=== PATIENT | female | born 1985 | race Caucasian/White ===

== ENCOUNTER → 2019-06-23 11:01 | Outpatient (CLI) | payer BC, SELFPAY ==
[2019-06-23 12:50] LABS: Hemoglobin A1C% w Est Avg Glu 5.1 % (4.0-6.0)
[2019-06-23 13:25] LABS: Prolactin 9.6 ng/mL (3.0-18.6)
[2019-06-23 14:54] LABS: Thyroid Stimulating Hormone 0.95 uIU/mL (0.47-4.68)
[2019-06-23 15:31] LABS: Follicle Stimulating Hormone 4.93 mIU/mL; Luteinizing Hormone 5.33 mIU/mL
[2019-06-28 00:53] LABS: Testosterone Total 24 ng/dL (2-45)
== END ==
DX: E28.1 Androgen excess (principal)
CPT/HCPCS: 36415; 83001; 83002; 83036; 84146; 84402; 84403; 84443

== ENCOUNTER 2020-03-14 17:58 | Emergency (ER) | payer BC, SELFPAY ==
[2020-03-14 18:04] VITALS: BP 188/86; PULSE 61; RESP 15; TEMP 36.4; O2SAT 100; BMI 33.3
[2020-03-14 18:40] LABS: Bacteria Urine Few (2-10); Culture Indicated Urine Specimen Cultured; RBC Urine 0-1/HPF (0-5/HPF); Squamous Epithelial Cell Urine 1-5 /HPF (0-5/HPF); Transitional Epi Cells Urine 1-5/HPF (0-5/HPF); WBC Urine 5-10/HPF (0-5/HPF)
[2020-03-14 19:31] LABS: Add Manual Diff / Slide Review NO; Basophils Absolute Auto 100 /uL (0-100); Basophils Percent Auto 0.7 % (0-2); Eosinophils Absolute Auto 200 /uL (0-450); Eosinophils Percent Auto 1.6 % (2-4); Hematocrit 41.4 % (36-46); Lymphocytes Absolute Auto 2900 /uL (1100-4500); Lymphocytes Percent Auto 24.1 % (25-40); Mean Corpuscular HGB Conc 33.7 % (30-36); Mean Corpuscular Hemoglobin 29.4 PG (26-34); Mean Corpuscular Volume 87.1 fL (80-100); Monocytes Absolute Auto 800 /uL (0-900); Monocytes Percent Auto 6.9 % (3-14); Neutrophils Absolute Auto 8100 /uL (1500-7000); Neutrophils Percent Auto 66.7 % (50-75); Platelet Count 250 X10^3/uL (150-400); Red Blood Cell Count 4.75 X10^6/uL (4.0-5.2); White Blood Cell Count 12.1 X10^3/uL (4.5-11.0)
[2020-03-14 19:43] LABS: Lactate (Lactic Acid) 0.7 mmol/L (0.7-2.1)
[2020-03-14 19:44] LABS: BUN Creatinine Ratio 21.1 (6-22); Blood Urea Nitrogen 15 mg/dL (7-17); Calcium 9.1 mg/dL (8.4-10.2); Carbon Dioxide 28 mmol/L (22-32); Chloride 102 mmol/L (98-107); Estimated Glomerular Filt Rate > 60.0 mL/min (>60); Glucose 95 mg/dL (70-100); HEMOLYSIS < 15 (0-50); Potassium 4.1 mmol/L (3.4-5.1); Sodium 137 mmol/L (137-145)
[2020-03-14] MEDS: cephALEXin 250 MG PREPACK 1 BOTTLE MISC (20:04)
[2020-03-14] MEDS: IBUPROFEN 400 MG TABLET PO (20:04)
[2020-03-14 20:29] VITALS: BP 174/76; PULSE 78; RESP 16; O2SAT 97
--- NOTE | 2020-03-14 23:00 | ED_ITS ---
HPI - Female Genitourinary <DANIELLE Mayo - Last Filed: 03/14/20 23:24> General Chief complaint: Urogenital-Female Stated complaint: states kidneys are hurting Time Seen by Provider: 03/14/20 19:01 Source: patient Mode of arrival: Ambulatory Limitations: no limitations History of Present Illness HPI Narrative: This is a 34-year-old female, nonsmoker, who has noncontributing medical history presents to ED with chief complain of bilateral low back pain worse in left-sided since 11:00 p.m. last night which woke her up. Patient reports chills and nausea. Patient reports had urinary frequency but no dysuria and feeling bloated and thought she might be . Patient denies fever, vomiting, abdominal pain, hematuria, or history of kidney stones. LMP on 02/20/20 and recently had IUD removed in hopes of . Patient reports she usually gets UTI once a year but usual symptoms are urinary hesitancy and dysuria. Patient denies unusual vaginal discharges or perineum rashes/lesions. Reports pain improves when she puts pressure on the back. Patient reports she noticed her blood pressure has been fluctuating from normal to high but no symptoms such as chest pain, dyspnea, dizziness, or headache. Patient also reports left side ear ringing. She had an appointment made with ENT specialist but this got canceled during . She denies ear pain, each ear, or decreased hearing. Related Data Home Medications Medication Instructions Recorded Confirmed dapsone 7.5 % topical gel with pump 1 applictn TOP DAILY 02/22/20 02/22/20 metronidazole 0.75 % topical cream 1 applictn TOP DAILY 02/22/20 02/22/20 spironolactone 50 mg tablet 50 mg PO BID 02/22/20 02/22/20 Previous Rx's Medication Instructions Recorded cephalexin [Keflex] 500 mg PO Q6H 7 Days #28 cap 03/14/20 Allergies Allergy/AdvReac Type Severity Reaction Status Date / Time No Known Drug Allergies Allergy Verified 03/14/20 18:04 Review of Systems <DANIELLE Mayo - Last Filed: 03/14/20 23:24> Review of Systems Narrative: General: Denies fever, (+) chills, fatigue, malaise, sweats. HEENT: Denies sinus pain, ear pain, sore throat, difficulty swallowing, dizziness. Respiratory: Denies dyspnea, cough, wheezing, hemoptysis, sputum. Cardiovascular: Denies chest pain, palpitations, orthopnea, edema. Gastrointestinal: Denies (+) nausea, vomiting, abdominal pain, diarrhea, constipation, melena. : See HPI Musculoskeletal: See HPI Skin: Denies rash, skin lesions, or other. Neurologic: Denies weakness, headache, numbness, change in speech, confusion, seizures, incoordination. Psychiatric: No concerning psychosocial issues. 12-point review of systems is negative except for those stated above. Patient History <DANIELLE Mayo - Last Filed: 03/14/20 23:24> Medical History (Updated 03/14/20 @ 20:12 by DANIELLE Mayo) Acne (Chronic ~1997) Chicken pox (Resolved 1987) Chronic headaches (Chronic) Depression (Chronic 2015) Hearing loss (Chronic 1987) History of recurrent ear infection (Resolved 1985) Infertility (Chronic) Irregular periods/menstrual cycles (Chronic 2014) Migraines (Chronic 1996) Surgical History (Updated 04/28/18 @ 11:13 by Karen Cobb) Anesthesia (Resolved) History of third molar tooth extraction (Resolved) Status post myringotomy with insertion of tube (Resolved 1993) Family History (Updated 04/28/18 @ 11:21 by Karen Cobb) Father Rupture, aorta Heart failure Heart disease Hyperlipidemia Mother Breast cancer Grandfather Cancer Lung cancer Grandmother Breast cancer Grandfather Kidney failure Cancer Hypertension Heart disease Pacemaker Grandmother Colon cancer Cancer Diabetes mellitus Heart disease Pacemaker Family/Other No problems noted. Smoking Status: Never smoker alcohol intake frequency: holidays/special occasions only Substance Use Type: does not use Exam <DANIELLE Mayo - Last Filed: 03/14/20 23:24> Narrative Exam Narrative: General appearance: well developed, well nourished, in no acute distress. Head: normocephalic, atraumatic, no scalp lesions, non-tender. ENT: Bilateral auditory canals clear. Left tympanic membranes dull and appearing sclerosis without erythema. Right tympanic membrane clear. Hearing grossly intact. Airway patent. Neck/Thyroid: neck supple, full range of motion, no visible masses or meningeal signs. No JVD, non-tender without lymphadenopathy. Skin: no suspicious rashes, lesions over visible areas. Warm and dry and appropriate color for ethnicity. Heart: no clubbing, no cyanosis, no edema. S1 and S2 normal. RRR w/o murmurs, clicks, or bruits. Lungs: Breathing even and unlabored. No stridor. No accessory muscles used. Able to speak in full sentences. Chest: normal shape and expansion. Abdomen: non-obese, non-distended. Neurologic: alert and oriented. 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 Psych: good eye contact, normal affect. Initial Vital Signs Initial Vital Signs: Vital Signs Temperature 97.5 F L 03/14/20 18:04 Pulse Rate 61 03/14/20 18:04 Respiratory Rate 15 03/14/20 18:04 Blood Pressure 188/86 H 03/14/20 18:04 Pulse Oximetry 100 03/14/20 18:04 Back/Spine/Pelvis Back: normal to inspection, No back tenderness, No CVA tenderness, No erythema, No mass and No warmth <Chris Phillips MD - Last Filed: 03/15/20 00:26> Initial Vital Signs Initial Vital Signs: Vital Signs Temperature 97.5 F L 03/14/20 18:04 Pulse Rate 61 03/14/20 18:04 Respiratory Rate 15 03/14/20 18:04 Blood Pressure 188/86 H 03/14/20 18:04 Pulse Oximetry 100 03/14/20 18:04 Scores <DANIELLE Mayo - Last Filed: 03/14/20 23:24> GCS [place] coma scale eye opening: Spontaneous Chitra coma scale verbal response: Orientated Chitra coma scale motor response: Obey commands Chitra coma scale total score: 15 qSOFA Altered Mental Status (GCS <15): No Respiratory rate greater than/equal to 22: No Systolic blood pressure less than or equal to 100: No qSOFA Total: 0 0-1 Not High Risk 1-3 High risk Course <DANIELLE Mayo - Last Filed: 03/14/20 23:24> Orders Ordered: ED Orders 03/14/20 18:07 Urine Culture Stat Urine Microscopic Stat 03/14/20 19:21 Basic Metabolic Panel Stat Complete Blood Count AUTO DIFF Stat Lactate (Lactic Acid) Stat Discontinued Medications Cefazolin Sodium (Keflex 250 Mg Prepack) 1 bottle MISC SEEINSTR ONE Stop: 03/14/20 19:51 Last Admin: 03/14/20 20:04 Dose: 1 bottle Documented by: JESSE Ibuprofen (Advil) 400 mg PO NOW ONE Stop: 03/14/20 19:56 Last Admin: 03/14/20 20:04 Dose: 400 mg Documented by: JESSE Vital Signs Vital signs: Vital Signs - 8 hr 03/14/20 18:04 03/14/20 20:29 Temperature 97.5 F L Pulse Rate 61 78 Respiratory Rate 15 16 Blood Pressure 188/86 H 174/76 H Pulse Oximetry 100 97 <Chris Phillips MD - Last Filed: 03/15/20 00:26> Orders Ordered: ED Orders 03/14/20 18:07 Urine Culture Stat Urine Microscopic Stat 03/14/20 19:21 Basic Metabolic Panel Stat Complete Blood Count AUTO DIFF Stat Lactate (Lactic Acid) Stat Discontinued Medications Cefazolin Sodium (Keflex 250 Mg Prepack) 1 bottle MISC SEEINSTR ONE Stop: 03/14/20 19:51 Last Admin: 03/14/20 20:04 Dose: 1 bottle Documented by: JESSE Ibuprofen (Advil) 400 mg PO NOW ONE Stop: 03/14/20 19:56 Last Admin: 03/14/20 20:04 Dose: 400 mg Documented by: JESSE Vital Signs Vital signs: Vital Signs - 8 hr 03/14/20 18:04 03/14/20 20:29 Temperature 97.5 F L Pulse Rate 61 78 Respiratory Rate 15 16 Blood Pressure 188/86 H 174/76 H Pulse Oximetry 100 97 MDM - Female Genitourinary <DANIELLE Mayo - Last Filed: 03/14/20 23:24> Differential Diagnosis Differential diagnosis: Likely urinary tract infection, cystitis and other (Pyelonephritis, renal stones) Medical Records Attestation: I reviewed the patient's medical records. Lab Data Attestation: I reviewed the patient's lab results. Result diagrams: 03/14/20 19:21 03/14/20 19:21 Labs: Lab Results 03/14/20 03/14/20 03/14/20 Range/Units 18:07 19:21 19:21 WBC 12.1 H (4.5-11.0) X10^3/uL RBC 4.75 (4.0-5.2) X10^6/uL Hgb 14.0 (12.0-16.0) g/dL Hct 41.4 (36-46) % MCV 87.1 (80-100) fL MCH 29.4 (26-34) PG MCHC 33.7 (30-36) % RDW 13.0 (11.6-14.8) % Plt Count 250 (150-400) X10^3/uL Neut % (Auto) 66.7 (50-75) % Lymph % (Auto) 24.1 L (25-40) % Iron % (Auto) 6.9 (3-14) % Eos % (Auto) 1.6 L (2-4) % Baso % (Auto) 0.7 (0-2) % Neut # (Auto) 8100 H (5074-9014) /uL Lymph # (Auto) 2900 (2781-5923) /uL Iron # (Auto) 800 (0-900) /uL Eos # (Auto) 200 (0-450) /uL Baso # (Auto) 100 (0-100) /uL Sodium 137 (137-145) mmol/L Potassium 4.1 (3.4-5.1) mmol/L Chloride 102 (98-107) mmol/L Carbon Dioxide 28 (22-32) mmol/L BUN 15 (7-17) mg/dL Creatinine 0.71 (0.52-1.04) mg/dL Estimated GFR > 60.0 (>60) mL/min BUN/Creatinine Ratio 21.1 (6-22) Glucose 95 (70-100) mg/dL Lactate (0.7-2.1) mmol/L Calcium 9.1 (8.4-10.2) mg/dL Urine RBC 0-1/hpf (0-5/HPF) Urine WBC 5-10/hpf H (0-5/HPF) Ur Squamous Epith Cells 1-5 /hpf (0-5/HPF) Ur Transition Epith Cell 1-5/hpf (0-5/HPF) Urine Bacteria Few (2-10) H (None) Ur Culture Indicated? Specimen cultured 03/14/20 Range/Units 19:21 WBC (4.5-11.0) X10^3/uL RBC (4.0-5.2) X10^6/uL Hgb (12.0-16.0) g/dL Hct (36-46) % MCV (80-100) fL MCH (26-34) PG MCHC (30-36) % RDW (11.6-14.8) % Plt Count (150-400) X10^3/uL Neut % (Auto) (50-75) % Lymph % (Auto) (25-40) % Iron % (Auto) (3-14) % Eos % (Auto) (2-4) % Baso % (Auto) (0-2) % Neut # (Auto) (5989-0062) /uL Lymph # (Auto) (6127-3274) /uL Iron # (Auto) (0-900) /uL Eos # (Auto) (0-450) /uL Baso # (Auto) (0-100) /uL Sodium (137-145) mmol/L Potassium (3.4-5.1) mmol/L Chloride (98-107) mmol/L Carbon Dioxide (22-32) mmol/L BUN (7-17) mg/dL Creatinine (0.52-1.04) mg/dL Estimated GFR (>60) mL/min BUN/Creatinine Ratio (6-22) Glucose (70-100) mg/dL Lactate 0.7 (0.7-2.1) mmol/L Calcium (8.4-10.2) mg/dL Urine RBC (0-5/HPF) Urine WBC (0-5/HPF) Ur Squamous Epith Cells (0-5/HPF) Ur Transition Epith Cell (0-5/HPF) Urine Bacteria (None) Ur Culture Indicated? Point of Care Testing Test Results Negative Urine Dip Bedside Urine Glucose Negative Bedside Urine Bilirubin - Negative Bedside Urine Ketone - Negative Urine Specific [place] 1.030 Bedside Urine Occult Blood - Negative Bedside Urine pH 3.0 Bedside Urine Protein - Negative Bedside Urine Urobilinogen - Negative Bedside Urine Nitrite - Negative Bedside Urine Leukocytes ++ 125 Esterase MDM Narrative Medical decision making narrative: This is a 34-year-old female who had urinary frequency and abdominal bloatedness 2 days before experiencing bilateral low back pain worse on left side since last night 11:00 pm. Patient had associated symptoms as nausea and chills. Patient reports atypical for her UTI symptoms from the past. Patient is nontoxic appearing and afebrile. POC urine test shows +++ leuks with negative nitrites. Urine test was negative. Microscopic urine test shows 5-10/hpf of WBC and few urine bacteria. Urine culture is pending. 0-1/hpf of RBC seen. Considered renal stone but patient's presentation and physical exam is not consistent with this. Considered pyelonephritis and labs were drawn. Very mild leukocytosis of 12.1 with normal kidney function test. Unremarkable other BMP. Lactate was normal. Patient was treated with 1st dose of Keflex and Motrin in ED and discharged to home with prepack and eRX for QID for 7 day course for UTI/early pyelonephritis. Patient advised to use aobn-hbf-ktioieu Tylenol and or Motrin for discomfort. Return precautions were discussed with patient and she verbalized understanding and agreement with the treatment plan. Patient provided with [facility] phone number to arrange PCP. Patient advised to use nasal steroid inhaler or oral allergy medication for her right ear ringing and to follow-up with ENT specialist as she planned. <Chris Phillips MD - Last Filed: 03/15/20 00:26> Lab Data Labs: Lab Results 03/14/20 03/14/20 03/14/20 Range/Units 18:07 19:21 19:21 WBC 12.1 H (4.5-11.0) X10^3/uL RBC 4.75 (4.0-5.2) X10^6/uL Hgb 14.0 (12.0-16.0) g/dL Hct 41.4 (36-46) % MCV 87.1 (80-100) fL MCH 29.4 (26-34) PG MCHC 33.7 (30-36) % RDW 13.0 (11.6-14.8) % Plt Count 250 (150-400) X10^3/uL Neut % (Auto) 66.7 (50-75) % Lymph % (Auto) 24.1 L (25-40) % Iron % (Auto) 6.9 (3-14) % Eos % (Auto) 1.6 L (2-4) % Baso % (Auto) 0.7 (0-2) % Neut # (Auto) 8100 H (9846-2499) /uL Lymph # (Auto) 2900 (1950-5634) /uL Iron # (Auto) 800 (0-900) /uL Eos # (Auto) 200 (0-450) /uL Baso # (Auto) 100 (0-100) /uL Sodium 137 (137-145) mmol/L Potassium 4.1 (3.4-5.1) mmol/L Chloride 102 (98-107) mmol/L Carbon Dioxide 28 (22-32) mmol/L BUN 15 (7-17) mg/dL Creatinine 0.71 (0.52-1.04) mg/dL Estimated GFR > 60.0 (>60) mL/min BUN/Creatinine Ratio 21.1 (6-22) Glucose 95 (70-100) mg/dL Lactate (0.7-2.1) mmol/L Calcium 9.1 (8.4-10.2) mg/dL Urine RBC 0-1/hpf (0-5/HPF) Urine WBC 5-10/hpf H (0-5/HPF) Ur Squamous Epith Cells 1-5 /hpf (0-5/HPF) Ur Transition Epith Cell 1-5/hpf (0-5/HPF) Urine Bacteria Few (2-10) H (None) Ur Culture Indicated? Specimen cultured 03/14/20 Range/Units 19:21 WBC (4.5-11.0) X10^3/uL RBC (4.0-5.2) X10^6/uL Hgb (12.0-16.0) g/dL Hct (36-46) % MCV (80-100) fL MCH (26-34) PG MCHC (30-36) % RDW (11.6-14.8) % Plt Count (150-400) X10^3/uL Neut % (Auto) (50-75) % Lymph % (Auto) (25-40) % Iron % (Auto) (3-14) % Eos % (Auto) (2-4) % Baso % (Auto) (0-2) % Neut # (Auto) (3315-6149) /uL Lymph # (Auto) (3757-2068) /uL Iron # (Auto) (0-900) /uL Eos # (Auto) (0-450) /uL Baso # (Auto) (0-100) /uL Sodium (137-145) mmol/L Potassium (3.4-5.1) mmol/L Chloride (98-107) mmol/L Carbon Dioxide (22-32) mmol/L BUN (7-17) mg/dL Creatinine (0.52-1.04) mg/dL Estimated GFR (>60) mL/min BUN/Creatinine Ratio (6-22) Glucose (70-100) mg/dL Lactate 0.7 (0.7-2.1) mmol/L Calcium (8.4-10.2) mg/dL Urine RBC (0-5/HPF) Urine WBC (0-5/HPF) Ur Squamous Epith Cells (0-5/HPF) Ur Transition Epith Cell (0-5/HPF) Urine Bacteria (None) Ur Culture Indicated? Point of Care Testing Test Results Negative Urine Dip Bedside Urine Glucose Negative Bedside Urine Bilirubin - Negative Bedside Urine Ketone - Negative Urine Specific [place] 1.030 Bedside Urine Occult Blood - Negative Bedside Urine pH 3.0 Bedside Urine Protein - Negative Bedside Urine Urobilinogen - Negative Bedside Urine Nitrite - Negative Bedside Urine Leukocytes ++ 125 Esterase Discharge Plan Departure Patient Disposition: Home Clinical Impression: UTI (urinary tract infection) Qualifiers: Urinary tract infection type: site unspecified Hematuria presence: with hematuria Qualified Code(s): N39.0 - Urinary tract infection, site not specified Discharge Date/Time: 03/14/20 20:15 Instructions: DI for Urinary Tract Infection (UTI) Activity Restrictions/Additional Instructions: You have been diagnosed with [bladder infection possibly early kidney infection. Urine culture is pending. You were treated with 1st dose of Keflex in ED.]. What to do: *Take your medications as directed. Please continue with Keflex 4 times a day for next 7 days. You can take [id number] Tylenol and or Motrin as needed for discomfort. Keflex has been transmitted to [facility] in [place]. *Follow up with your primary care provider in 2-3 days, call for an appointment. Let them know you were seen in the ED and that we asked you to be seen in follow up. *Return to ED if you have any new, worsening, or concerning symptoms, such as [fever/chills, worsening pain, unable to tolerate fluids, chest pain, breathing difficulty, dizziness or any acute concerns]. Prescriptions: New cephalexin [Keflex] 500 mg capsule 500 mg PO Q6H 7 Days Qty: 28 RF: 0 No Action spironolactone 50 mg tablet 50 mg PO BID RF: 0 metronidazole 0.75 % cream 1 applictn TOP DAILY RF: 0 dapsone 7.5 % gel with pump 1 applictn TOP DAILY RF: 0 Referrals: [facility] [Outside] Nelly Castle MD [Primary Care Provider] - <Chris Phillips MD - Last Filed: 03/15/20 00:26> Cosign ED Attending Cosignature Attestation: I was immediately available in the department for consultation. This documentation has been reviewed and I agree with assessment and plan. Supervised by Chris Phillips MD
== END 2020-03-14 20:15 | disposition home or self-care (01) ==
PROVIDERS: Emergency Medicine; Emergency Provider Nurse Practitioner Family; PCP Obstetrics & Gynecology
DX: N39.0 Urinary tract infection, site not specified (principal)
CPT/HCPCS: 36415; 80048; 81003; 81015; 81025; 83605; 85025; 87086; 99283

== ENCOUNTER → 2020-03-30 17:53 | Outpatient (CLI) | payer BC, SELFPAY | PROVIDERS: Visit Provider Physician Assistant | DX: R30.0 Dysuria (principal) | CPT/HCPCS: 87086 ==

== ENCOUNTER → 2021-01-03 08:11 | Outpatient (CLI) | payer BC, SELFPAY ==
[2021-01-03 11:52] LABS: COVID19 -Nasal RAPID Negative (Negative)
== END ==
PROVIDERS: Visit Provider Obstetrics & Gynecology
DX: Z01.812 Encounter for preprocedural laboratory examination (principal); Z20.822 Contact with and (suspected) exposure to COVID-19
CPT/HCPCS: 87635

== ENCOUNTER 2021-01-03 10:45 | Day surgery (SDC) | payer BC, SELFPAY ==
[2020-12-25 15:15] VITALS: BMI 34.8
[2021-01-03] VITALS (7 sets, daily range): BP systolic 112–129; BP diastolic 41–80; PULSE 65–82; RESP 12–20; TEMP 36.1–36.9; O2SAT 95–100; BMI 34.8
--- NOTE | 2021-01-03 | PATH_ITS ---
[facility] Accession Number: [id number] . 01 Material submitted: . fallopian tube - BILATERAL FALLOPIAN TUBES . 02 Diagnosis: Bilateral Fallopian Tubes, Bilateral Salpingectomy: Fallopian tubes x 2 with a benign paratubal cyst (6 mm). Complete cross sections. Negative for atypia or malignancy. MRV 01/07/2021 1056 Local . 02 Electronically signed: . Qing Bryant MD, Pathologist NPI- [id number] . 01 Gross description: . The specimen is received in formalin, labeled bilateral fallopian tubes and consists of two fallopian tubes measuring 4.9 cm in length by 0.9 cm in diameter and 6.0 cm in length by 0.9 cm in diameter. The serosa is clark-pink and dull to smooth with fibrinous adhesions and a 0.6 x 0.5 x 0.3 cm paratubal cyst. Sectioning reveals a clark-pink mucosa and a stellate lumen measuring 0.3 cm in diameter. Retirement Benefits Specialist sections are submitted, to include the en face margin (blue), central cross-sections and bisected fimbria, in cassettes A1-A2. ([id number]) /MRV 01/04/2021 1307 Local . 02 Pathologist provided ICD-10: N83.8 . 02 CPT . 692749 Performed at: 01 [facility] [address] [place] [address], [place], [place] [id number] MD Lex Landry MD Phone: [phone] [facility]formed at: [facility] [address] [place], [place] [id number] MD Aylin Zaldivar MD Phone: [phone]
[2021-01-03] MEDS: LACTATED RINGERS 1,000 ML 100 ML IV ×2 (10:56→13:11)
--- NOTE | 2021-01-03 12:04 | PM.HP.1 ---
History of Present Illness History of Present Illness Date Patient Seen: 01/03/21 Time Patient Seen: 12:07 Chief complaint: LAP WICHO SALPINGECTOMY Narrative: Patient is a 35-year-old 5 para 2 who presents for a laparoscopic bilateral salpingectomy. Patient History Medical History (Updated 12/04/20 @ 23:48 by Nelly Castle MD) Acne (~1997) Chicken pox (1987) Chronic headaches Depression (2015) Hearing loss (1987) History of recurrent ear infection (1985) Infertility Irregular periods/menstrual cycles (2014) Migraines (1996) Rosacea Surgical History (Updated 12/04/20 @ 23:47 by Nelly Castle MD) Anesthesia History of third molar tooth extraction Status post myringotomy with insertion of tube (1993) [place] teeth extracted Family & Social History Family History (Updated 04/28/18 @ 11:21 by Karen Cobb) Father Rupture, aorta Heart failure Heart disease Hyperlipidemia Mother Breast cancer Grandfather Cancer Lung cancer Grandmother Breast cancer Grandfather Kidney failure Cancer Hypertension Heart disease Pacemaker Grandmother Colon cancer Cancer Diabetes mellitus Heart disease Pacemaker Family/Other No problems noted. Social History: household members spouse,children Tobacco & Substance use: Smoking Status Never smoker alcohol intake current alcohol intake frequency holiday/special occasion Substance Use Type does not use Meds Home Medications and Allergies Home Medications Medication Instructions Recorded Confirmed Type azelaic acid 15 % topical foam 1 applic TOPICAL ONCE g 11/13/20 01/03/21 History (Finacea) doxycycline hyclate 100 mg capsule 100 mg PO BID 11/13/20 01/03/21 History Allergies Allergy/AdvReac Type Severity Reaction Status Date / Time No Known Drug Allergies Allergy Verified 01/03/21 10:57 Exam Vital Signs (past 8 hours): - 01/03/21 11:02 Temperature 98.4 F Pulse Rate 73 Respiratory Rate 16 Blood Pressure 129/80 Pulse Oximetry 99 Oxygen Delivery Method Room Air Narrative Exam Narrative: HEENT: No thyromegaly, no anterior cervical or supraclavicular lymphadenopathy. Lungs:Clear to auscultation bilaterally, no wheezes. Cardiovascular: Regular rate and rhythm, no murmurs, rubs, or gallops Abdomen: No scars. No hepatosplenomegaly. No masses palpable. External genitalia: Normal Vagina: Normal Cervix: Normal Bimanual exam: 6 Week size anteverted uterus. Mobile. No adnexal masses or tenderness. Assessment & Plan Assessment & Plan narrative: Assessment: 35-year-old 5 para 2 desires permanent sterilization Plan: Laparoscopic bilateral salpingectomy The risks, benefits, and alternatives to the procedure were explained to the patient. The risks including bleeding, infection, injury to the bowel, bladder, or ureters. She understands these risks and agrees to proceed. A full par Q was held and consent form was signed. COVID-19 COVID-19 status: Negative Result date/Date tested (Pos, Neg/Pending): 01/03/21 Time Spent With Patient Time with patient: 15-24 minutes
--- NOTE | 2021-01-03 12:10 | PM.PREOP ---
Pre-operative Note COVID-19 COVID-19 status: Negative Result date/Date tested (Pos, Neg/Pending): 01/03/21 Interval Note History & Physical reviewed/Exam performed by Physician: Yes Changes to H&P: No H&P completed within 30 days and has changed as indicated here:: 01/03/21
--- NOTE | 2021-01-03 12:16 | SUR.OPER ---
Lithotomy on padded OR bed, head on pillow, arms secured on padded arm boards at <90 degrees abduction. Legs secured in padded yellow fins stirrups. arms padded and tucked at sides
[2021-01-03] MEDS: BUPIVACAINE 0.25% W/ EPI 30 ML VIAL INJ (13:12)
[2021-01-03] MEDS: fentaNYL 100 MCG/2 ML INJ IV ×2 (13:45→13:56)
[2021-01-03] MEDS: ACETAMINOPHEN 325 MG TABLET 975 MG PO (13:48)
[2021-01-03] MEDS: OXYCODONE IR 5 MG TABLET PO (14:18)
--- NOTE | 2021-01-04 09:44 | PM.GYNOP.1 ---
Operative Date/Time/Diagnoses Date of procedure: 01/03/21 Time of procedure: 13:20 Pre-op diagnosis: Desires permanent sterilization Post-op diagnosis: same Procedure & Clinicians Procedure: Procedures Operation Date: 01/03/21 11:45 Actual Procedure Side Surgeon p Laparoscopic Salpingectomy Bilateral Nelly Castle MD Indications: Desires permanent sterilization Surgeon: Nelly Castle Anesthesia Type: General and Local Operative Notes Findings: 6 week size anteverted uterus Normal liver and gallbladder Normal appendix Closure Type: primary Specimen(s): left tube and right tube Estimated blood loss (mL): 5 Blood products transfused: none Procedure in detail: After informed consent was obtained, the patient was taken to the operating room where she was placed in the dorsal supine position. After adequate general endotracheal anesthesia was achieved, she was placed in the dorsal lithotomy position, and prepped and draped in the usual sterile fashion. A time-out was performed. A bivalve speculum was placed into the vagina and the anterior lip of the cervix was grasped with a single-tooth tenaculum. The cervical os was sequentially dilated until the Zumi uterine manipulator could pass easily into the endometrial cavity. The single-tooth tenaculum was removed from the anterior lip of the cervix. The bivalve speculum was removed from the vagina. Attention was turned to the abdomen where 6 cc of 0.25% Marcaine with epinephrine were injected in the umbilical fold and a 5 mm incision was made. The Veress needle was placed into the peritoneal cavity, and its placement confirmed by aspiration and drop test. The abdominal cavity was insufflated with 4.2 L of CO2. The Veress needle was removed, and a 5 mm trocar was placed without difficulty. Initial inspection of the pelvis and abdomen revealed the findings noted above. Two other incisions were made 4 cm lateral to the midline after 6 cc of 0.25% Marcaine with epinephrine were injected. 5 mm incisions were made. Two 5 mm trocars were placed under direct visualization. The right tube was grasped with an atraumatic grasper, and the PlasmaKinetic was used at 40 w to cauterize and cut the mesosalpinx all the way down to the cornua of the uterus. The tube was amputated at the cornua. All of this was repeated on the patient's left side. Hemostasis was achieved. The tubes were pulled through the 5 mm trocars. The instruments were removed from the abdomen. The CO2 was allowed to escape. The trocars were removed. The incisions were repaired with 4-0 Biosyn in a subcuticular fashion. Steri-Strips and Allevyn dressings were placed. The Zumi uterine manipulator was removed from the uterus. Sponge, lap, and instrument counts were correct x2. The patient tolerated the procedure well, and was taken to PACU in stable condition. Complications: none Post-operative Condition: stable Disposition: PACU Plan for aftercare: Home after delivery
== END 2021-01-03 14:40 | disposition home or self-care (01) ==
PROVIDERS: Referring Provider Obstetrics & Gynecology; Visit Provider Obstetrics & Gynecology
PROC: 0UT74ZZ Resection of Bilateral Fallopian Tubes, Percutaneous Endoscopic Approach (ICD-10-PCS; CPT 58661; principal; 2021-01-03 11:45)
DX: Z30.2 Encounter for sterilization (principal); E66.9 Obesity, unspecified; Z68.35 Body mass index [BMI] 35.0-35.9, adult; N83.8 Other noninflammatory disorders of ovary, fallopian tube and broad ligament
CPT/HCPCS: 58661; 81025; J0330; J1100; J2250; J2405; J2704; J3010